=== PATIENT | male | born 1970 | race Caucasian/White ===

== ENCOUNTER → 2017-07-21 | Outpatient (CLI) | payer OTHER ==
[~2017-07-21] MED LIST: OPTIRAY 320 IV PRN
--- NOTE | 2017-07-21 15:29 | DIAGNOSTIC IMAGING REPORT ---
ABD/PELVIS IV AND ORAL CONT CT DOSE: 1041.96 mGy.cm HISTORY: Flank pain LLQ PAIN,HX OF DIVERTICULITIS TECHNIQUE: Multiaxial CT images of the abdomen and pelvis were performed following the use of intravenous and oral contrast. A dose lowering technique was utilized adhering to the principles of ALARA. COMPARISON STUDY: None. FINDINGS: Lung bases are clear. Fatty infiltration of the liver. Pancreas is uniform. Spleen is unremarkable. Intra-abdominal bowel pattern is unremarkable. Kidneys enhance uniformly. No evidence for hydronephrosis. Findings of acute diverticulitis involving the distal descending colon and proximal to mid sigmoid. Moderate pericolonic infiltrative change. No evidence for abscess collection or obstructive change. The bladder is midline. No free fluid within the cul-de-sac. IMPRESSION: 1. Acute sigmoid and distal descending colonic diverticulitis. 2. Moderate pericolonic infiltrative change. 3. No evidence for abscess or collection. The above report was generated using voice recognition software. It may contain grammatical, syntax or spelling errors. Electronically signed by: Dominic Fry M.D. 07/21/2017 3:28 PM Dictated Date/Time: 07/21/2017 3:24 PM
== END | disposition home or self-care (01) ==
LOC: C.CTS 13:08
PROVIDERS: ATTEND Physician Assistant Medical
DX: R10.32 Left lower quadrant pain (principal); Z87.19 Personal history of other diseases of the digestive system; K57.32 Diverticulitis of large intestine without perforation or abscess without bleeding